=== PATIENT | female | born 1965 | race Caucasian/White ===

== ENCOUNTER 2017-02-08 19:18 | Emergency (ER) | payer MEDICAID ==
[2017-02-08 19:28] VITALS: BP 140/109; PULSE 91; RESP 18; TEMP 98; O2SAT 99
[2017-02-08 20:19] LABS: BASO % 0.6 % (0.0-2.0); EOS # 0.2 K/uL (0.0-0.7); EOS % 3.1 % (0.0-4.0); HEMATOCRIT 31.7 % (34.0-47.0); LYMPH % 36.4 % (20.0-40.0); MEAN CELL VOLUME 81.4 fl (81.0-99.0); MEAN CORPUSCULAR HEMOGLOBIN 26.8 pg (27.0-31.0); MEAN CORPUSCULAR HGB CONC 32.9 g/dL (33.0-37.0); MEAN PLATELET VOLUME 9.8 fl (7.2-11.7); MONO # 0.5 K/uL (0.0-0.8); MONO % 9.6 % (0.0-10.0); NEUT # 2.7 K/uL (1.8-7.0); NEUT % 50.3 % (50.0-75.0); NRBC % 0.1 % (0.0-0.0); RED CELL DISTRIBUTION WIDTH 15.1 % (11.5-14.5); WHITE BLOOD COUNT 5.4 K/uL (4.8-10.8)
[2017-02-08 20:35] LABS: BLOOD UREA NITROGEN 17 mg/dl (7-17); CALCIUM 8.9 mg/dL (8.4-10.2); CARBON DIOXIDE 25 mmol/L (22-30); CHLORIDE 104 mmol/L (98-107); GFR AFRICAN-AMERICAN > 60; GLUCOSE,RANDOM 102 mg/dL (65-105); POTASSIUM 4.3 MMOL/L (3.6-5.0); SODIUM 141 mmol/l (132-148)
--- NOTE | 2017-02-08 20:43 | ED PDOC ---
HPI: Chest Pain Time Seen by Provider: 02/08/17 19:35 Chief Complaint (Nursing): Chest Pain Chief Complaint (Provider): Chest Pain History Per: Patient History/Exam Limitations: no limitations Onset/Duration Of Symptoms: Mins (x45) Current Symptoms Are (Timing): Better (almost completely resolved) Severity: Moderate Associated Symptoms: denies: Dyspnea, Diaphoresis Additional Complaint(s): Bridgett Mosquera is a 51 year old female, with a past medical history inclusive of HTN and previous cardiac catheterization, who presents to the ED on 02/08/17 for the evaluation of moderate, left-sided breast/chest pain that she has experienced x45 minutes. Patient states that pain, described as nonradiating, is almost completely resolved upon ED evaluation and had not been accompanied by any shortness of breath or diaphoresis. Pain had reportedly made her nervous , prompting ED visit. Of note, pertinent familial history includes both CAD and [place]. PMD: Eddie Eid Past Medical History Reviewed: Historical Data, Nursing Documentation, Vital Signs Vital Signs: Last Vital Signs Temp 98.0 F 02/08/17 19:25 Pulse 91 H 02/08/17 19:25 Resp 18 02/08/17 19:25 BP 140/109 H 02/08/17 19:25 Pulse Ox 99 02/08/17 20:57 - Medical History PMH: Anemia, Anxiety, Gall Bladder Disease, HTN Denies: Chronic Kidney Disease - Surgical History Surgical History: Cholecystectomy - Family History Family History: States: [place], CAD - Immunization History Hx Tetanus Toxoid Vaccination: No Hx Influenza Vaccination: No Hx Pneumococcal Vaccination: No - Home Medications Home Medications: Ambulatory Orders Medication Instructions Recorded Alprazolam [Xanax] 0.25 mg PO DAILY PRN 07/15/16 Aspirin [Ecotrin] 81 mg PO DAILY 07/15/16 Enalapril Maleate [Vasotec] 5 mg PO DAILY 11/27/16 Ibuprofen [Motrin Tab] 800 mg PO Q8 PRN 11/27/16 Loratadine [Claritin] 10 mg PO DAILY 11/27/16 Naproxen [Naprosyn Tab] 375 mg PO Q8 #14 tab 11/27/16 - Allergies Allergies/Adverse Reactions: Allergies Allergy/AdvReac Type Severity Reaction Status Date / Time No Known Allergies Allergy Verified 11/27/16 19:02 Review of Systems ROS Statement: Except As Marked, All Systems Reviewed And Found Negative Constitutional: Negative for: Sweats Cardiovascular: Positive for: Chest Pain (left-sided breast/chest, nonradiating) Respiratory: Negative for: Shortness of Breath Physical Exam - Reviewed Nursing Documentation Reviewed: Yes Vital Signs Reviewed: Yes - Physical Exam Appears: Positive for: Non-toxic, No Acute Distress Head Exam: Positive for: ATRAUMATIC, NORMOCEPHALIC Skin: Positive for: Normal Color, Warm, Dry Eye Exam: Positive for: Normal appearance, PERRL Neck: Positive for: Normal, Painless ROM, Supple Cardiovascular/Chest: Positive for: Regular Rate, Rhythm, Chest Non Tender. Negative for: Murmur Respiratory: Positive for: Normal Breath Sounds. Negative for: Respiratory Distress Neurologic/Psych: Positive for: Alert, Oriented - Laboratory Results Result Diagrams: 02/08/17 20:10 02/08/17 20:10 - ECG ECG: Positive for: Interpreted By Me, Viewed By Me ECG Rhythm: Positive for: Sinus Rhythm. Negative for: ST/T Changes O2 Sat by Pulse Oximetry: 99 (RA) Pulse Ox Interpretation: Normal Medical Decision Making Medical Decision Makin:35 EKG performed in Triage shows NSR with no ST/T changes. Initial Impression: noncardiac chest pain Initial Plan: * CXR * Labs * Troponin I * Reevaluation Scribe Attestation: Documented by Melani Lares, acting as a scribe for Davon Eng MD. Provider Scribe Attestation: All medical record entries made by the Scribe were at my direction and personally dictated by me. I have reviewed the chart and agree that the record accurately reflects my personal performance of the history, physical exam, medical decision making, and the department course for this patient. I have also personally directed, reviewed, and agree with the discharge instructions and disposition. Disposition - Clinical Impression Clinical Impression: Anterior chest wall pain - Disposition Referrals: [facility] [Outside] Disposition Time: 21:00 Condition: STABLE Instructions: Noncardiac Chest Pain (ED) Print Language: PALESTINIAN
--- NOTE | 2017-02-09 06:37 | RAD ---
HISTORY: cp COMPARISON: No prior. TECHNIQUE: Chest PA and lateral FINDINGS: LUNGS: No active pulmonary disease. PLEURA: No significant pleural effusion identified. No pneumothorax apparent. CARDIOVASCULAR: Normal. OSSEOUS STRUCTURES: No significant abnormalities. VISUALIZED UPPER ABDOMEN: Normal. OTHER FINDINGS: None. IMPRESSION: No active disease.
== END 2017-02-08 21:07 | disposition home or self-care (01) ==
LOC: H.ER 19:18
DX: R07.89 Other chest pain (principal); I10 Essential (primary) hypertension; Z79.82 Long term (current) use of aspirin

== ENCOUNTER 2017-07-30 21:28 | Emergency (ER) | payer MEDICAID ==
[2017-07-30 21:36] VITALS: RESP 16
[2017-07-30 22:27] LABS: BASO % 0.8 % (0.0-2.0); EOS # 0.2 K/uL (0.0-0.7); EOS % 3.3 % (0.0-4.0); HEMATOCRIT 30.4 % (34.0-47.0); LYMPH # 1.9 K/uL (1.0-4.3); LYMPH % 40.4 % (20.0-40.0); MEAN CELL VOLUME 81.5 fl (81.0-99.0); MEAN CORPUSCULAR HEMOGLOBIN 26.5 pg (27.0-31.0); MEAN CORPUSCULAR HGB CONC 32.5 g/dL (33.0-37.0); MEAN PLATELET VOLUME 9.5 fl (7.2-11.7); MONO # 0.5 K/uL (0.0-0.8); MONO % 10.4 % (0.0-10.0); NEUT # 2.2 K/uL (1.8-7.0); NEUT % 45.1 % (50.0-75.0); NRBC % 0.1 % (0.0-0.0); RED CELL DISTRIBUTION WIDTH 14.3 % (11.5-14.5); WHITE BLOOD COUNT 4.8 K/uL (4.8-10.8)
[2017-07-30 22:32] LABS: BLOOD UREA NITROGEN 19 mg/dl (7-17); CALCIUM 8.7 mg/dL (8.4-10.2); CARBON DIOXIDE 24 mmol/L (22-30); CHLORIDE 106 mmol/L (98-107); GFR AFRICAN-AMERICAN > 60; GLUCOSE,RANDOM 113 mg/dL (65-105); POTASSIUM 4.1 MMOL/L (3.6-5.0); SODIUM 138 mmol/l (132-148)
--- NOTE | 2017-07-30 22:38 | ED PDOC ---
HPI: Chest Pain Time Seen by Provider: 07/30/17 21:43 Chief Complaint (Nursing): Chest Pain History Per: Patient History/Exam Limitations: no limitations Onset/Duration Of Symptoms: Hrs (1) Current Symptoms Are (Timing): Still Present Severity: Moderate Quality: "Pain" Associated Symptoms: denies: Nausea, Dyspnea, Diaphoresis Modifying Factors: None Exacerbating Factors: None Alleviating Factors: None Additional History Per: Patient Additional Complaint(s): 52 y/o female complaining of chest pain x1 hour and associated with tingling/numbness in bilateral feet. No nausea. vomiting, shortness of breath, diaphoresis. She reports that she has had significant anxiety recently as her mother is hospitalized here. Past Medical History Vital Signs: Last Vital Signs Temp 98.2 F 07/30/17 21:34 Pulse 80 07/30/17 21:34 Resp 16 07/30/17 21:34 BP 128/65 07/30/17 21:34 Pulse Ox 98 07/30/17 22:42 - Medical History PMH: Anemia, Anxiety, Gall Bladder Disease, HTN Denies: Chronic Kidney Disease - Surgical History Surgical History: Cholecystectomy Other surgeries: Gastric Bypass - Family History Family History: States: Unknown Family Hx, [place], CAD - Immunization History Hx Tetanus Toxoid Vaccination: No Hx Influenza Vaccination: No Hx Pneumococcal Vaccination: No - Home Medications Home Medications: Ambulatory Orders Medication Instructions Recorded Alprazolam [Xanax] 0.25 mg PO DAILY PRN 07/15/16 Aspirin [Ecotrin] 81 mg PO DAILY 07/15/16 Enalapril Maleate [Vasotec] 5 mg PO DAILY 11/27/16 Ibuprofen [Motrin Tab] 800 mg PO Q8 PRN 11/27/16 Loratadine [Claritin] 10 mg PO DAILY 11/27/16 Naproxen [Naprosyn Tab] 375 mg PO Q8 #14 tab 11/27/16 - Allergies Allergies/Adverse Reactions: Allergies Allergy/AdvReac Type Severity Reaction Status Date / Time No Known Allergies Allergy Verified 07/30/17 21:34 Review of Systems ROS Statement: Except As Marked, All Systems Reviewed And Found Negative Cardiovascular: Positive for: Chest Pain Psych: Positive for: Anxiety Physical Exam - Reviewed Nursing Documentation Reviewed: Yes Vital Signs Reviewed: Yes - Physical Exam Appears: Positive for: Well, Non-toxic, No Acute Distress Head Exam: Positive for: ATRAUMATIC, NORMAL INSPECTION, NORMOCEPHALIC Skin: Positive for: Normal Color, Warm, DRY Eye Exam: Positive for: EOMI, Normal appearance, PERRL ENT: Positive for: Normal ENT Inspection Neck: Positive for: Normal, Painless ROM Cardiovascular/Chest: Positive for: Regular Rate, Rhythm Respiratory: Positive for: CNT, Normal Breath Sounds Gastrointestinal/Abdominal: Positive for: Normal Exam, Bowel Sounds, Soft Back: Positive for: Normal Inspection Extremity: Positive for: Normal ROM Neurologic/Psych: Positive for: Alert, Oriented - Laboratory Results Result Diagrams: 07/30/17 22:21 07/30/17 22:21 - ECG ECG Rhythm: Positive for: Normal QRS, Normal ST Segment, Sinus Rhythm (74) Interpretation Of EC:34: NSR rate 74. O2 Sat by Pulse Oximetry: 98 Medical Decision Making Medical Decision Making: Impression: 52 y/o female with anterior chest discomfort in the setting of anxiety. Plan: - EKG - Labs Time: 2325 Labs reviewed and show no clinically significant abnormalities. Patient is stable upon discharge home and will follow up with [facility] in 1- 2 days. Diagnosis: Atypical chest pain, Anxiety Attestation Scribe Attestation: Documented by Dayan Decker acting as a scribe for Wale Collins MD. Scribe Attestation: All medical record entries made by the Scribe were at my direction and personally dictated by me. I have reviewed the chart and agree that the record accurately reflects my personal performance of the history, physical exam, medical decision making, and the department course for this patient. I have also personally directed, reviewed, and agree with the discharge instructions and disposition. Disposition - Clinical Impression Clinical Impression: Chest pain, atypical, Anxiety - Disposition Disposition: Routine/Home Disposition Time: 23:25 Condition: STABLE Instructions: Noncardiac Chest Pain (ED), Anxiety (ED) Forms: [employer] (Ukrainian)
[2017-07-31 00:15] VITALS: BP 109/58; PULSE 60; TEMP 97.6; O2SAT 100
--- NOTE | 2017-07-31 08:23 | CARD ---
APPROVED REPORT EKG Measurement Heart [id number] <Conclusion> Normal sinus rhythm Normal ECG
== END 2017-07-31 00:21 | disposition home or self-care (01) ==
LOC: H.ER 21:28
DX: R07.89 Other chest pain (principal); F41.9 Anxiety disorder, unspecified; I10 Essential (primary) hypertension; Z79.82 Long term (current) use of aspirin

== ENCOUNTER 2017-08-14 11:48 | Emergency (ER) | payer MEDICAID ==
[2017-08-14 12:09] VITALS: RESP 18; O2SAT 99
--- NOTE | 2017-08-14 12:42 | ED PDOC ---
HPI: Chest Pain Time Seen by Provider: 08/14/17 12:09 Chief Complaint (Nursing): Chest Pain Chief Complaint (Provider): Mid sternal chest burning History Per: Patient History/Exam Limitations: no limitations Current Symptoms Are (Timing): Still Present Additional Complaint(s): The patient is a 52yo female, presents to ED for evaluation of mid-sternal chest discomfort, described as burning. She denies any shortness of breath, nausea, vomiting. She offers no additional medical complaints. Past Medical History Reviewed: Historical Data, Nursing Documentation, Vital Signs Vital Signs: Last Vital Signs Temp 98.6 F 08/14/17 15:24 Pulse 78 08/14/17 15:24 Resp 18 08/14/17 15:24 BP 124/75 08/14/17 15:24 Pulse Ox 99 08/14/17 15:24 - Medical History PMH: Anemia, Anxiety, Gall Bladder Disease, HTN, Hypothyroidism Denies: Chronic Kidney Disease - Surgical History Surgical History: Cholecystectomy - Family History Family History: States: Unknown Family Hx, [place], CAD - Social History Current smoker - smoking cessation education provided: No Alcohol: None Drugs: Denies - Immunization History Hx Tetanus Toxoid Vaccination: No Hx Influenza Vaccination: No Hx Pneumococcal Vaccination: No - Home Medications Home Medications: Ambulatory Orders Medication Instructions Recorded Alprazolam [Xanax] 0.25 mg PO DAILY PRN 07/15/16 Aspirin [Ecotrin] 81 mg PO DAILY 07/15/16 Enalapril Maleate [Vasotec] 5 mg PO DAILY 11/27/16 Loratadine [Claritin] 10 mg PO DAILY 11/27/16 Levothyroxine [Synthroid] 50 mcg PO DAILY 08/02/17 Ciprofloxacin [Cipro] 250 mg PO BID #6 tab 08/14/17 Famotidine [Pepcid] 20 mg PO BID #20 tab 08/14/17 - Allergies Allergies/Adverse Reactions: Allergies Allergy/AdvReac Type Severity Reaction Status Date / Time No Known Allergies Allergy Verified 08/02/17 01:47 DEMOND Risk Score for UA/NSTEMI - DEMOND Risk Score Age > 64: NO 3 or more CAD Risk Factors: NO Known CAD (Stenosis greater than 50%): NO Aspirin use in past 7 days: NO Severe Angina: NO EKG ST changes greater than 0.5mm: NO Positive Cardiac Marker: NO DEMOND Score: 0 Risk %: 5% Wells Criteria for PE - Wells Criteria for Pulmonary Embolism Clinical Signs and Symptoms of DVT: No P.E is #1 Diagnosis, or Equally Likely: No Heart Rate >100: No Immobilization at least 3 days;Surgery previous 4 weeks: No Previous, objectively diagnosed PE or DVT: No Hemoptysis: No Malignancy w/treatment within 6 months, or palliative: No Total Score: 0 Review of Systems ROS Statement: Except As Marked, All Systems Reviewed And Found Negative Constitutional: Negative for: Fever, Chills Cardiovascular: Positive for: Other (mid-sternal chest burning) Respiratory: Negative for: Cough, Shortness of Breath Physical Exam - Reviewed Nursing Documentation Reviewed: Yes Vital Signs Reviewed: Yes - Physical Exam Appears: Positive for: Non-toxic, No Acute Distress Head Exam: Positive for: ATRAUMATIC, NORMAL INSPECTION, NORMOCEPHALIC Skin: Positive for: Warm, Dry Cardiovascular/Chest: Positive for: Regular Rate, Rhythm, Chest Non Tender. Negative for: Murmur Respiratory: Positive for: Normal Breath Sounds. Negative for: Respiratory Distress Neurologic/Psych: Positive for: Alert, Oriented. Negative for: Motor/Sensory Deficits - Laboratory Results Result Diagrams: 08/14/17 12:40 08/14/17 12:40 - ECG Interpretation Of ECG: NSR @ 79, no ST-T changes. O2 Sat by Pulse Oximetry: 99 (RA) Pulse Ox Interpretation: Normal - Progress Re-evaluation Time: 14:52 Condition: Improved Medical Decision Making Medical Decision Making: Time: 1215 Impression: GERD Plan: -- Labs -- EKG Reassess Time: 1246 Chest x-ray IMPRESSION: No active disease. No significant interval change compared to the prior examination(s). Scribe Attestation: Documented by Genie Diaz acting as a scribe for Haleigh Clark MD. Provider Attestation: All medical record entries made by the Scribe were at my direction and personally dictated by me. I have reviewed the chart and agree that the record accurately reflects my personal performance of the history, physical exam, medical decision making, and the department course for this patient. I have also personally directed, reviewed, and agree with the discharge instructions and disposition. Disposition - Clinical Impression Clinical Impression: Atypical chest pain, UTI (urinary tract infection) - Disposition Referrals: Eddie Eid MD [Family Provider] - Disposition: Routine/Home Disposition Time: 17:39 Condition: STABLE Prescriptions: Ciprofloxacin [Cipro] 250 mg PO BID #6 tab Famotidine [Pepcid] 20 mg PO BID #20 tab Instructions: Chest Pain (ED), Urinary Tract Infection in Women (ED) Forms: [employer] (Romanian) Print Language: MAURITIAN
--- NOTE | 2017-08-14 12:48 | RAD ---
HISTORY: Chest pain, burning COMPARISON: 02/08/2017 TECHNIQUE: Chest PA and lateral FINDINGS: LUNGS: No active pulmonary disease. PLEURA: No significant pleural effusion identified. No pneumothorax apparent. CARDIOVASCULAR: Two No radiographic findings to suggest acute or significant cardiovascular disease. OSSEOUS STRUCTURES: No significant abnormalities. VISUALIZED UPPER ABDOMEN: Normal. OTHER FINDINGS: None. IMPRESSION: No active disease. No significant interval change compared to the prior examination(s). Please note: No preliminary report/ innterpretation of this examination provided by emergency department personnel.
[2017-08-14 12:52] LABS: BASO % 0.6 % (0.0-2.0); EOS # 0.1 K/uL (0.0-0.7); EOS % 1.4 % (0.0-4.0); HEMATOCRIT 33.9 % (34.0-47.0); LYMPH # 1.7 K/uL (1.0-4.3); LYMPH % 24.5 % (20.0-40.0); MEAN CELL VOLUME 79.8 fl (81.0-99.0); MEAN CORPUSCULAR HEMOGLOBIN 26.7 pg (27.0-31.0); MEAN CORPUSCULAR HGB CONC 33.5 g/dL (33.0-37.0); MEAN PLATELET VOLUME 9.6 fl (7.2-11.7); MONO # 0.3 K/uL (0.0-0.8); MONO % 4.9 % (0.0-10.0); NEUT # 4.7 K/uL (1.8-7.0); NEUT % 68.6 % (50.0-75.0); NRBC % 0.1 % (0.0-0.0); RED CELL DISTRIBUTION WIDTH 14.7 % (11.5-14.5); WHITE BLOOD COUNT 6.8 K/uL (4.8-10.8)
[2017-08-14 12:59] LABS: ALB/GLOB RATIO 1.2 (1.0-2.1); ALKALINE PHOSPHATASE 97 U/L (38-126); ALT/SGPT 37 U/L (9-52); AST/SGOT 24 U/L (14-36); BILIRUBIN,TOTAL 0.8 mg/dl (0.2-1.3); BLOOD UREA NITROGEN 16 mg/dl (7-17); CALCIUM 9.4 mg/dL (8.4-10.2); CARBON DIOXIDE 25 mmol/L (22-30); CHLORIDE 104 mmol/L (98-107); GFR AFRICAN-AMERICAN > 60; GLUCOSE,RANDOM 100 mg/dL (65-105); POTASSIUM 4.4 MMOL/L (3.6-5.0); SODIUM 142 mmol/l (132-148); TOTAL PROTEIN 7.9 G/DL (6.3-8.2)
[2017-08-14] MEDS ORDERED: Alum-Mag Hydrox-Simethicone Susp (30 mL) PO STA (14:15)
[2017-08-14] MEDS ORDERED: Atrop/Hyos/Scop/PhenoB Elixir PO STA (14:16)
[2017-08-14] MEDS ORDERED: Alum-Mag Hydrox-Simethicone Susp (30 mL) ONE (14:38)
[2017-08-14 15:25] VITALS: BP 124/75; PULSE 78; TEMP 98.6
[2017-08-14 16:49] LABS: RBC URINE 1 /hpf (0-3); URINE BACTERIA FEW (<OCC); URINE BILIRUBIN NEGATIVE (NEGATIVE); URINE BLOOD SMALL (NEGATIVE); URINE GLUCOSE (UA) NEG (Normal); URINE KETONE NEGATIVE (NEGATIVE); URINE LEUKOCYTE ESTERASE SMALL Leu/uL (Negative); URINE PROTEIN NEGATIVE (NEGATIVE); URINE UROBILINOGEN 0.2-1.0 mg/dL (0.2-1.0); WBC URINE 5 /hpf (0-5)
[2017-08-14 16:50] LABS: URINE COLOR YELLOW (YELLOW)
--- NOTE | 2017-08-16 12:18 | CARD ---
APPROVED REPORT EKG Measurement Heart [id number] <Conclusion> Normal sinus rhythm Normal ECG
== END 2017-08-14 17:16 | disposition home or self-care (01) ==
LOC: H.ER 11:48
DX: R07.89 Other chest pain (principal); N39.0 Urinary tract infection, site not specified

== ENCOUNTER 2017-09-07 00:16 | Emergency (ER) | payer MEDICAID ==
[2017-09-07 00:52] VITALS: RESP 18
[2017-09-07] MEDS ORDERED: Sodium Chloride 0.9% 1,000 ML IV STA (01:06)
--- NOTE | 2017-09-07 01:23 | ED PDOC ---
HPI: Back Time Seen by Provider: 09/07/17 00:25 Chief Complaint (Nursing): Back Pain Chief Complaint (Provider): Back pain History Per: Patient History/Exam Limitations: no limitations Onset/Duration Of Symptoms: Hrs Current Symptoms Are (Timing): Still Present Additional History Per: Patient Additional Complaint(s): 52yo female, currently being treated for an UTI, presents to the ED for evaluation of bilateral lower back pain as well as right upper back pain, associated with chills. Patient states she woke up yesterday morning with chills and nausea; she denies any fever or vomiting. She denies any dysuria, hematuria and offers no other medical complaints. Past Medical History Reviewed: Historical Data, Nursing Documentation, Vital Signs Vital Signs: Last Vital Signs Temp 97.5 F L 09/07/17 00:50 Pulse 74 09/07/17 00:50 Resp 18 09/07/17 00:50 BP 170/83 H 09/07/17 00:50 Pulse Ox 99 09/07/17 00:50 - Medical History PMH: Anemia, Anxiety, Gall Bladder Disease, HTN, Hypothyroidism Denies: Chronic Kidney Disease - Surgical History Surgical History: Cholecystectomy - Family History Family History: States: [place], CAD - Immunization History Hx Tetanus Toxoid Vaccination: No Hx Influenza Vaccination: No Hx Pneumococcal Vaccination: No - Home Medications Home Medications: Ambulatory Orders Medication Instructions Recorded Alprazolam [Xanax] 0.25 mg PO DAILY PRN 07/15/16 Aspirin [Ecotrin] 81 mg PO DAILY 07/15/16 Enalapril Maleate [Vasotec] 5 mg PO DAILY 11/27/16 Loratadine [Claritin] 10 mg PO DAILY 11/27/16 Levothyroxine [Synthroid] 50 mcg PO DAILY 08/02/17 Ciprofloxacin [Cipro] 250 mg PO BID #6 tab 08/14/17 Famotidine [Pepcid] 20 mg PO BID #20 tab 08/14/17 Cyclobenzaprine [Cyclobenzaprine 10 mg PO BID #15 tab 09/07/17 HCl] Ibuprofen [Motrin Tab] 600 mg PO Q6 #30 tab 09/07/17 - Allergies Allergies/Adverse Reactions: Allergies Allergy/AdvReac Type Severity Reaction Status Date / Time No Known Allergies Allergy Verified 09/07/17 00:48 Review of Systems ROS Statement: Except As Marked, All Systems Reviewed And Found Negative Constitutional: Positive for: Chills. Negative for: Fever Gastrointestinal: Positive for: Nausea. Negative for: Vomiting Genitourinary Female: Negative for: Dysuria, Hematuria Musculoskeletal: Positive for: Back Pain (bilateral lower back pain; right upper back pain) Physical Exam - Reviewed Nursing Documentation Reviewed: Yes - Physical Exam Appears: Positive for: Non-toxic, No Acute Distress Head Exam: Positive for: ATRAUMATIC, NORMAL INSPECTION, NORMOCEPHALIC Cardiovascular/Chest: Positive for: Regular Rate, Rhythm Respiratory: Positive for: Normal Breath Sounds. Negative for: Respiratory Distress Back: Positive for: Normal Inspection, R CVA Tenderness (mild). Negative for: Vertebral Tenderness Neurologic/Psych: Positive for: Alert, Oriented - Laboratory Results Result Diagrams: 09/07/17 01:20 09/07/17 01:20 - ECG O2 Sat by Pulse Oximetry: 99 (RA) Pulse Ox Interpretation: Normal Medical Decision Making Medical Decision Making: Time: 104 Impression: Possible pyelonephritis Plan: -- CT AP w/ IV Contrast -- Labs -- Toradol 15 mg IVP -- IV Fluids -- Urinalysis -- Urine Culture Reassess Time: 0545 CT AP FINDINGS: Lower thorax: No acute findings. ABDOMEN: Liver: Unremarkable. No mass. Gallbladder and bile ducts: Cholecystectomy. No ductal dilation. Pancreas: Unremarkable. No mass. No ductal dilation. Spleen: Unremarkable. No splenomegaly. Adrenals: Unremarkable. No mass. Kidneys and ureters: Unremarkable. No solid mass. No hydronephrosis. Stomach and bowel: Gastric surgery. Appendix: No findings to suggest acute appendicitis. PELVIS: Bladder: Unremarkable. No mass. Reproductive: 2 CM left ovarian hypodensity, probable cyst. ABDOMEN and PELVIS: Intraperitoneal space: Unremarkable. No free air. No significant fluid collection. Bones/joints: Diffuse mild spinal degenerative changes. No acute fracture. No dislocation. Soft tissues: Unremarkable. Vasculature: Unremarkable. No abdominal aortic aneurysm. Lymph nodes: Unremarkable. No enlarged lymph nodes. IMPRESSION: 1. No hydronephrosis, renal, or definite ureteral calculus. Symmetric enhancement of kidneys. No perinephric inflammation or fluid collection. 2. Remainder of findings as above. 545 pt's symptoms resolved. will d/c home.. return preacutions given. Scribe Attestation: Documented by Genie Diaz acting as a scribe for Davon Eng MD. Provider Attestation: All medical record entries made by the Scribe were at my direction and personally dictated by me. I have reviewed the chart and agree that the record accurately reflects my personal performance of the history, physical exam, medical decision making, and the department course for this patient. I have also personally directed, reviewed, and agree with the discharge instructions and disposition. Disposition - Clinical Impression Clinical Impression: Back strain - Disposition Referrals: Eddie Eid MD [Staff Provider] - Disposition: Routine/Home Disposition Time: 05:45 Condition: STABLE Prescriptions: Cyclobenzaprine [Cyclobenzaprine HCl] 10 mg PO BID #15 tab Ibuprofen [Motrin Tab] 600 mg PO Q6 #30 tab Instructions: Muscle Strain (ED), Musculoskeletal Pain (ED) Forms: [employer] (Latvian) Print Language: GREEK
[2017-09-07 01:41] LABS: BASO % 0.8 % (0.0-2.0); EOS # 0.1 K/uL (0.0-0.7); EOS % 1.9 % (0.0-4.0); HEMATOCRIT 30.6 % (34.0-47.0); LYMPH # 2.2 K/uL (1.0-4.3); LYMPH % 34.7 % (20.0-40.0); MEAN CELL VOLUME 81.6 fl (81.0-99.0); MEAN CORPUSCULAR HEMOGLOBIN 26.9 pg (27.0-31.0); MEAN PLATELET VOLUME 9.5 fl (7.2-11.7); MONO # 0.6 K/uL (0.0-0.8); MONO % 9.2 % (0.0-10.0); NEUT # 3.3 K/uL (1.8-7.0); NEUT % 53.4 % (50.0-75.0); RED CELL DISTRIBUTION WIDTH 15.2 % (11.5-14.5); WHITE BLOOD COUNT 6.3 K/uL (4.8-10.8)
[2017-09-07 01:43] LABS: RBC URINE < 1 /hpf (0-3); URINE BACTERIA RARE (<OCC); URINE BILIRUBIN NEGATIVE (NEGATIVE); URINE BLOOD NEGATIVE (NEGATIVE); URINE COLOR YELLOW (YELLOW); URINE GLUCOSE (UA) NEG (Normal); URINE KETONE NEGATIVE (NEGATIVE); URINE LEUKOCYTE ESTERASE NEG Leu/uL (Negative); URINE PROTEIN 100 mg/dL (NEGATIVE); WBC URINE < 1 /hpf (0-5)
[2017-09-07 01:53] LABS: ALB/GLOB RATIO 1.2 (1.0-2.1); ALKALINE PHOSPHATASE 79 U/L (38-126); ALT/SGPT 31 U/L (9-52); AST/SGOT 25 U/L (14-36); BILIRUBIN,TOTAL 0.4 mg/dl (0.2-1.3); BLOOD UREA NITROGEN 14 mg/dl (7-17); CALCIUM 8.7 mg/dL (8.4-10.2); CARBON DIOXIDE 28 mmol/L (22-30); CHLORIDE 105 mmol/L (98-107); GFR AFRICAN-AMERICAN > 60; GLUCOSE,RANDOM 105 mg/dL (65-105); POTASSIUM 3.8 MMOL/L (3.6-5.0); SODIUM 141 mmol/l (132-148); TOTAL PROTEIN 6.9 G/DL (6.3-8.2)
[2017-09-07] MEDS ORDERED: Iohexol 300 100 ML IJ ONE ×2 (04:32→04:50)
[2017-09-07] MEDS ORDERED: Sodium Chloride 0.9% 50 ML IV ONE ×2 (04:33→04:53)
--- NOTE | 2017-09-07 05:45 | CT ---
EXAM: CT Abdomen and Pelvis With Intravenous Contrast CLINICAL HISTORY: 52 years old, female; Pain; Abdominal pain; Generalized; Additional info: Recently diagnosed uti, r flank pain TECHNIQUE: Axial computed tomography images of the abdomen and pelvis with intravenous contrast. All CT scans at this facility use one or more dose reduction techniques, viz.: automated exposure control; ma/kV adjustment per patient size (including targeted exams where dose is matched to indication; i.e. head); or iterative reconstruction technique. Coronal and sagittal reformatted images were created and reviewed. CONTRAST: 95 mL of [id number] administered intravenously. COMPARISON: No relevant prior studies available. FINDINGS: Lower thorax: No acute findings. ABDOMEN: Liver: Unremarkable. No mass. Gallbladder and bile ducts: Cholecystectomy. No ductal dilation. Pancreas: Unremarkable. No mass. No ductal dilation. Spleen: Unremarkable. No splenomegaly. Adrenals: Unremarkable. No mass. Kidneys and ureters: Unremarkable. No solid mass. No hydronephrosis. Stomach and bowel: Gastric surgery. Appendix: No findings to suggest acute appendicitis. PELVIS: Bladder: Unremarkable. No mass. Reproductive: 2 CM left ovarian hypodensity, probable cyst. ABDOMEN and PELVIS: Intraperitoneal space: Unremarkable. No free air. No significant fluid collection. Bones/joints: Diffuse mild spinal degenerative changes. No acute fracture. No dislocation. Soft tissues: Unremarkable. Vasculature: Unremarkable. No abdominal aortic aneurysm. Lymph nodes: Unremarkable. No enlarged lymph nodes. IMPRESSION: 1. No hydronephrosis, renal, or definite ureteral calculus. Symmetric enhancement of kidneys. No perinephric inflammation or fluid collection. 2. Remainder of findings as above.
[2017-09-07 06:03] VITALS: BP 111/83; PULSE 69; TEMP 98.5
[2017-09-08 01:07] VITALS: O2SAT 99
== END 2017-09-07 06:03 | disposition home or self-care (01) ==
LOC: H.ER 00:16
DX: M54.9 Dorsalgia, unspecified (principal); N39.0 Urinary tract infection, site not specified; E03.9 Hypothyroidism, unspecified; F41.9 Anxiety disorder, unspecified; I10 Essential (primary) hypertension; Z79.82 Long term (current) use of aspirin; Z82.49 Family history of ischemic heart disease and other diseases of the circulatory system
CPT/HCPCS: 74177; 80053; 81003; 81025; 85025; 87086; 96361; 96374; 99283; J1885; J7040; Q9967

== ENCOUNTER 2017-09-28 18:38 | Emergency (ER) | payer MEDICAID ==
[2017-09-28 18:47] VITALS: BP 136/67; PULSE 82; RESP 18; TEMP 97.8; O2SAT 99
--- NOTE | 2017-09-28 19:21 | ED PDOC ---
HPI: Chest Pain Time Seen by Provider: 09/28/17 18:54 Chief Complaint (Nursing): Chest Pain Chief Complaint (Provider): chest pain History Per: Patient History/Exam Limitations: no limitations Onset/Duration Of Symptoms: Hrs (since 5p) Current Symptoms Are (Timing): Still Present Severity: Mild Quality: Pressure Associated Symptoms: denies: Nausea, Dyspnea, Diaphoresis, Syncope Additional Complaint(s): Started while doing dishes. Midsternum radiating to LEFT shoulder. Constant. Took her BP at home which was 161/91 Similar to previous episodes when she was told that it was muscular, but reports that she feels more "tight" then that time. PMD: Dr Eid Past Medical History Reviewed: Historical Data, Nursing Documentation, Vital Signs Vital Signs: Last Vital Signs Temp 97.8 F 09/28/17 18:44 Pulse 82 09/28/17 18:44 Resp 18 09/28/17 18:44 BP 136/67 09/28/17 18:44 Pulse Ox 99 09/28/17 19:23 - Medical History PMH: Anemia, Anxiety, Gall Bladder Disease, HTN, Hypothyroidism Denies: Chronic Kidney Disease - Surgical History Surgical History: Cholecystectomy Other surgeries: Gastric bypass, abdominoplasty - Family History Family History: States: Unknown Family Hx, [place], CAD - Social History Current smoker - smoking cessation education provided: No Drugs: Denies - Immunization History Hx Tetanus Toxoid Vaccination: No Hx Influenza Vaccination: No Hx Pneumococcal Vaccination: No - Home Medications Home Medications: Ambulatory Orders Medication Instructions Recorded Alprazolam [Xanax] 0.25 mg PO DAILY PRN 07/15/16 Aspirin [Ecotrin] 81 mg PO DAILY 07/15/16 Enalapril Maleate [Vasotec] 5 mg PO DAILY 11/27/16 Loratadine [Claritin] 10 mg PO DAILY 11/27/16 Levothyroxine [Synthroid] 50 mcg PO DAILY 08/02/17 Ciprofloxacin [Cipro] 250 mg PO BID #6 tab 08/14/17 Famotidine [Pepcid] 20 mg PO BID #20 tab 08/14/17 Cyclobenzaprine [Cyclobenzaprine 10 mg PO BID #15 tab 09/07/17 HCl] Ibuprofen [Motrin Tab] 600 mg PO Q6 #30 tab 09/07/17 Naproxen [Naprosyn] 1 tab PO BID PRN #30 tab 09/28/17 - Allergies Allergies/Adverse Reactions: Allergies Allergy/AdvReac Type Severity Reaction Status Date / Time No Known Allergies Allergy Verified 09/07/17 00:48 Review of Systems ROS Statement: Except As Marked, All Systems Reviewed And Found Negative (and as per HPI) Cardiovascular: Positive for: Chest Pain. Negative for: Light Headedness Respiratory: Negative for: Shortness of Breath Physical Exam - Reviewed Nursing Documentation Reviewed: Yes Vital Signs Reviewed: Yes - Physical Exam Appears: Positive for: Non-toxic, No Acute Distress Head Exam: Positive for: ATRAUMATIC, NORMOCEPHALIC Skin: Positive for: Warm Eye Exam: Positive for: EOMI, PERRL ENT: Negative for: Pharyngeal Erythema, Tonsillar Exudate Neck: Positive for: Painless ROM, Supple Cardiovascular/Chest: Positive for: Regular Rate, Rhythm, Chest Non Tender. Negative for: Murmur Respiratory: Positive for: Normal Breath Sounds. Negative for: Wheezing, Respiratory Distress Gastrointestinal/Abdominal: Positive for: Soft. Negative for: Tenderness Back: Positive for: Normal Inspection. Negative for: Decreased ROM Extremity: Positive for: Normal ROM. Negative for: Deformity Lymphatic: Negative for: Adenopathy Neurologic/Psych: Positive for: Alert. Negative for: Motor/Sensory Deficits - Laboratory Results Result Diagrams: 09/28/17 19:26 09/28/17 19:26 Interpretation Of Abn Labs: Anemia, stable c/w previous. No emergently significant lab abnormalities - ECG ECG: Positive for: Interpreted By Ok ECG Rhythm: Positive for: Normal QRS, Normal ST Segment, Sinus Rhythm O2 Sat by Pulse Oximetry: 99 Pulse Ox Interpretation: Normal - Radiology X-Ray: Interpreted by Ok X-Ray Interpretation: No Acute Disease Disposition - Clinical Impression Clinical Impression: Chest wall pain Counseled Patient/Family Regarding: Studies Performed, Diagnosis, Need For Followup, Rx Given - Disposition Referrals: Eddie Eid MD [Staff Provider] - 09/29/17 (VISITA MELÉNDEZ DOCTOR EN 1-2 [employer] A [facility]) Disposition: Routine/Home Disposition Time: 21:00 Condition: GOOD Prescriptions: Naproxen [Naprosyn] 1 tab PO BID PRN #30 tab PRN Reason: Pain Instructions: Noncardiac Chest Pain (ED) Print Language: BURKINAN
[2017-09-28 19:30] LABS: BASO % 0.9 % (0.0-2.0); EOS # 0.1 K/uL (0.0-0.7); EOS % 1.7 % (0.0-4.0); HEMATOCRIT 30.9 % (34.0-47.0); LYMPH # 2.4 K/uL (1.0-4.3); MEAN CELL VOLUME 78.4 fl (81.0-99.0); MEAN CORPUSCULAR HEMOGLOBIN 26.6 pg (27.0-31.0); MEAN CORPUSCULAR HGB CONC 33.9 g/dL (33.0-37.0); MEAN PLATELET VOLUME 9.3 fl (7.2-11.7); MONO # 0.4 K/uL (0.0-0.8); MONO % 7.8 % (0.0-10.0); NEUT # 2.8 K/uL (1.8-7.0); NEUT % 48.6 % (50.0-75.0); NRBC % 0.1 % (0.0-0.0); RED CELL DISTRIBUTION WIDTH 14.5 % (11.5-14.5); WHITE BLOOD COUNT 5.7 K/uL (4.8-10.8)
[2017-09-28 19:50] LABS: ALB/GLOB RATIO 1.2 (1.0-2.1); ALKALINE PHOSPHATASE 97 U/L (38-126); ALT/SGPT 39 U/L (9-52); AST/SGOT 24 U/L (14-36); BILIRUBIN,TOTAL 0.2 mg/dl (0.2-1.3); BLOOD UREA NITROGEN 12 mg/dl (7-17); CALCIUM 8.6 mg/dL (8.4-10.2); CARBON DIOXIDE 27 mmol/L (22-30); CHLORIDE 107 mmol/L (98-107); GFR AFRICAN-AMERICAN > 60; GLUCOSE,RANDOM 98 mg/dL (65-105); MAGNESIUM 1.8 MG/DL (1.6-2.3); PHOSPHOROUS 2.9 mg/dl (2.5-4.5); POTASSIUM 3.9 MMOL/L (3.6-5.0); SODIUM 140 mmol/l (132-148); TOTAL PROTEIN 7.2 G/DL (6.3-8.2)
[2017-09-28 20:01] LABS: PARTIAL THROMBOPLASTIN TIME 34.9 Seconds (25.6-37.1)
[2017-09-28 20:19] LABS: THYROID STIMULATING HORMONE 3.41 mIU/ML (0.46-4.68)
--- NOTE | 2017-09-29 09:36 | RAD ---
HISTORY: chest pain COMPARISON: Chest radiographs 08/14/2017. TECHNIQUE: Chest PA and lateral FINDINGS: LUNGS: No active pulmonary disease. PLEURA: No significant pleural effusion identified. No pneumothorax apparent. CARDIOVASCULAR: Normal. OSSEOUS STRUCTURES: No significant abnormalities. VISUALIZED UPPER ABDOMEN: Postop changes are again seen the medial left upper quadrant. OTHER FINDINGS: None. IMPRESSION: No interval acute cardiopulmonary disease appreciated.
--- NOTE | 2017-09-29 11:25 | CARD ---
APPROVED REPORT EKG Measurement Heart [id number] <Conclusion> Normal sinus rhythm Normal ECG
== END 2017-09-28 21:52 | disposition home or self-care (01) ==
LOC: H.ER 18:38
DX: R07.89 Other chest pain (principal); E03.9 Hypothyroidism, unspecified; F41.9 Anxiety disorder, unspecified; I10 Essential (primary) hypertension; Z79.82 Long term (current) use of aspirin; D64.9 Anemia, unspecified
CPT/HCPCS: 71020; 80053; 81025; 83735; 83880; 84100; 84443; 84484; 85025; 85610; 85730; 93005; 96374; 99283; J1885

== ENCOUNTER 2017-10-22 20:04 | Emergency (ER) | payer MEDICAID ==
[2017-10-22 20:15] VITALS: TEMP 97.7; O2SAT 100
[2017-10-22] MEDS ORDERED: Sodium Chloride 0.9% 1,000 ML IV STA (20:31)
--- NOTE | 2017-10-22 20:35 | ED PDOC ---
HPI: Chest Pain Time Seen by Provider: 10/22/17 20:22 Chief Complaint (Nursing): Chest Pain Chief Complaint (Provider): Central chest pain, pressure x 30 minutes History Per: Patient History/Exam Limitations: no limitations Onset/Duration Of Symptoms: Mins (30 minutes ) Severity: Moderate Pain Scale Rating Of: 6 Front/Back of Body, Lg (Color): 1 - Pain Quality: Tightness, Pressure Associated Symptoms: Nausea. denies: Dyspnea, Diaphoresis Modifying Factors: None Exacerbating Factors: None Alleviating Factors: None Additional Complaint(s): Pt states this pain is different than the pain she has had in the past. Pt states it radiates to the neck bilateral. Pt also reports palpitations which she has not had in the past with her chest/shoulder pain. Past Medical History Reviewed: Historical Data, Nursing Documentation, Vital Signs Vital Signs: Last Vital Signs Temp 97.7 F 10/22/17 20:09 Pulse 78 10/22/17 21:33 Resp 20 10/22/17 21:33 BP 143/80 10/22/17 21:33 Pulse Ox 100 10/22/17 20:35 - Medical History PMH: Anemia, Anxiety, Gall Bladder Disease, HTN, Hypothyroidism Denies: Chronic Kidney Disease - Surgical History Surgical History: Cholecystectomy - Family History Family History: States: Unknown Family Hx, [place], CAD - Living Arrangements Living Arrangements: Alone - Immunization History Hx Tetanus Toxoid Vaccination: No Hx Influenza Vaccination: No Hx Pneumococcal Vaccination: No - Home Medications Home Medications: Ambulatory Orders Medication Instructions Recorded Alprazolam [Xanax] 0.25 mg PO PRN PRN 10/22/17 Enalapril Maleate [Vasotec] 5 mg PO DAILY 10/22/17 Levothyroxine [Synthroid] 75 mcg PO DAILY 10/22/17 - Allergies Allergies/Adverse Reactions: Allergies Allergy/AdvReac Type Severity Reaction Status Date / Time No Known Allergies Allergy Verified 10/08/17 18:04 - Laboratory Results Result Diagrams: 10/22/17 22:08 10/22/17 22:08 - ECG O2 Sat by Pulse Oximetry: 100 Medical Decision Making Medical Decision Making: Discussed with Dr. Collins and second troponin (-) Disposition - Clinical Impression Clinical Impression: Chest pain, atypical - Patient ED Disposition Is Patient to be Admitted: No Counseled Patient/Family Regarding: Diagnosis, Need For Followup - Disposition Disposition: Routine/Home Disposition Time: 01:57 Condition: GOOD Additional Instructions: Please follow-up with PMD. Instructions: Chest Pain (ED) Forms: [employer] ([place]orese) Print Language: ECUADOREAN
[2017-10-22 21:34] VITALS: PULSE 78; RESP 20
[2017-10-22 22:17] LABS: BASO % 0.5 % (0.0-2.0); EOS # 0.1 K/uL (0.0-0.7); EOS % 2.8 % (0.0-4.0); HEMATOCRIT 32.3 % (34.0-47.0); LYMPH # 2.3 K/uL (1.0-4.3); LYMPH % 41.6 % (20.0-40.0); MEAN CORPUSCULAR HGB CONC 32.1 g/dL (33.0-37.0); MONO # 0.4 K/uL (0.0-0.8); MONO % 7.9 % (0.0-10.0); NEUT # 2.6 K/uL (1.8-7.0); NEUT % 47.2 % (50.0-75.0); NRBC % 0.1 % (0.0-0.0); RED CELL DISTRIBUTION WIDTH 15.1 % (11.5-14.5); WHITE BLOOD COUNT 5.4 K/uL (4.8-10.8)
[2017-10-22 22:24] LABS: ALB/GLOB RATIO 1.1 (1.0-2.1); ALKALINE PHOSPHATASE 90 U/L (38-126); ALT/SGPT 36 U/L (9-52); AST/SGOT 28 U/L (14-36); BILIRUBIN,TOTAL 0.4 mg/dl (0.2-1.3); BLOOD UREA NITROGEN 14 mg/dl (7-17); CARBON DIOXIDE 26 mmol/L (22-30); CHLORIDE 108 mmol/L (98-107); GFR AFRICAN-AMERICAN > 60; GLUCOSE,RANDOM 114 mg/dL (65-105); SODIUM 141 mmol/l (132-148); TOTAL PROTEIN 7.3 G/DL (6.3-8.2)
[2017-10-22 23:36] LABS: THYROID STIMULATING HORMONE 3.78 mIU/ML (0.46-4.68)
[2017-10-23 02:19] VITALS: BP 94/48
--- NOTE | 2017-10-23 09:05 | RAD ---
HISTORY: chest pain, palpitations COMPARISON: 09/28/2017 TECHNIQUE: Chest PA and lateral FINDINGS: LUNGS: No active pulmonary disease. PLEURA: No significant pleural effusion identified. No pneumothorax apparent. CARDIOVASCULAR: Normal. OSSEOUS STRUCTURES: No significant abnormalities. VISUALIZED UPPER ABDOMEN: Normal. OTHER FINDINGS: None. IMPRESSION: No active disease.
--- NOTE | 2017-10-23 10:33 | CARD ---
APPROVED REPORT EKG Measurement Heart [id number] [place] [id number] <Conclusion> Sinus rhythm with frequent premature ventricular complexes Otherwise normal ECG
== END 2017-10-23 02:19 | disposition home or self-care (01) ==
LOC: H.ER 20:04
DX: R07.89 Other chest pain (principal); F41.9 Anxiety disorder, unspecified; I10 Essential (primary) hypertension; E03.9 Hypothyroidism, unspecified; I49.3 Ventricular premature depolarization
CPT/HCPCS: 71020; 80053; 84443; 84484; 85025; 93005; 96374; 99282; J2405; J7040

== ENCOUNTER 2018-02-14 22:37 | Emergency (ER) | payer MEDICAID ==
[2018-02-14 22:37] VITALS: BMI 31.7
[2018-02-14 22:50] VITALS: O2SAT 98
[2018-02-14 23:30] LABS: BASO % 0.6 % (0.0-2.0); EOS # 0.2 K/uL (0.0-0.7); EOS % 3.1 % (0.0-4.0); HEMOGLOBIN 10.8 g/dL (12.0-16.0); LYMPH # 3.1 K/uL (1.0-4.3); LYMPH % 48.8 % (20.0-40.0); MEAN CELL VOLUME 79.5 fl (81.0-99.0); MEAN CORPUSCULAR HEMOGLOBIN 25.6 pg (27.0-31.0); MEAN CORPUSCULAR HGB CONC 32.2 g/dL (33.0-37.0); MEAN PLATELET VOLUME 9.6 fl (7.2-11.7); MONO # 0.5 K/uL (0.0-0.8); MONO % 7.5 % (0.0-10.0); NEUT # 2.5 K/uL (1.8-7.0); NRBC % 0.1 % (0.0-0.0); RBC 4.21 Mil/uL (3.80-5.20); RED CELL DISTRIBUTION WIDTH 14.9 % (11.5-14.5); WHITE BLOOD COUNT 6.3 K/uL (4.8-10.8)
[2018-02-14 23:44] LABS: ALB/GLOB RATIO 1.1 (1.0-2.1); ALBUMIN 3.9 g/dL (3.5-5.0); ALT/SGPT 40 U/L (9-52); AST/SGOT 29 U/L (14-36); BLOOD UREA NITROGEN 16 mg/dl (7-17); CALCIUM 9.1 mg/dL (8.4-10.2); GFR AFRICAN-AMERICAN > 60; GFR NON-AFRICAN AMERICAN > 60
[2018-02-14 23:57] LABS: BARBITURATES, UR NEGATIVE (NEGATIVE); BENZODIAZEPINES, UR POSITIVE (NEGATIVE); OPIATES, UR NEGATIVE (NEGATIVE); PHENCYCLIDINE, UR NEGATIVE (NEGATIVE)
--- NOTE | 2018-02-15 00:57 | ED PDOC ---
HPI: Chest Pain Time Seen by Provider: 02/14/18 22:51 Chief Complaint (Nursing): Chest Pain Chief Complaint (Provider): Chest Pain History Per: Patient History/Exam Limitations: no limitations Onset/Duration Of Symptoms: Hrs (x1) Current Symptoms Are (Timing): Still Present Additional Complaint(s): Bridgett Mosquera is a 52 year old female with a past medical history of anxiety, hypertension, and hypothyroidism, who is presenting to the ER with complaints of chest pain, onset 1 hour prior to arrival while patient was sleeping. Patient states that the pain was similar to a previous episode, after which she had cardiac evaluation and a stress test completed. She states that she was told that a small part of her heart was weak. Dr. Herrera started her on Metoprolol. She denies any leg swelling, and shortness of breath but reports malaise and fatigue. PMD: Eddie Eid R - Risk Factors TAD Risk Factors: Pos: Hypertension Past Medical History Reviewed: Historical Data, Nursing Documentation, Vital Signs Vital Signs: Last Vital Signs Temp 97.6 F 02/14/18 22:44 Pulse 70 02/15/18 04:06 Resp 16 02/14/18 22:44 BP 125/77 02/14/18 22:44 Pulse Ox 98 02/15/18 04:06 - Medical History PMH: Anemia, Anxiety, Gall Bladder Disease, HTN, Hypothyroidism Denies: Chronic Kidney Disease - Surgical History Surgical History: Cholecystectomy Other surgeries: abdominoplasty - Family History Family History: States: [place], CAD - Social History Current smoker - smoking cessation education provided: No - Immunization History Hx Tetanus Toxoid Vaccination: No Hx Influenza Vaccination: No Hx Pneumococcal Vaccination: No - Home Medications Home Medications: Ambulatory Orders Medication Instructions Recorded Alprazolam [Xanax] 0.25 mg PO PRN PRN 10/22/17 Enalapril Maleate [Vasotec] 5 mg PO DAILY 10/22/17 Levothyroxine [Synthroid] 75 mcg PO DAILY 10/22/17 - Allergies Allergies/Adverse Reactions: Allergies Allergy/AdvReac Type Severity Reaction Status Date / Time No Known Allergies Allergy Verified 10/08/17 18:04 Review of Systems ROS Statement: Except As Marked, All Systems Reviewed And Found Negative Constitutional: Positive for: Malaise, Other (fatigue) Cardiovascular: Positive for: Chest Pain Respiratory: Negative for: Shortness of Breath Musculoskeletal: Negative for: Other (leg swelling) Physical Exam - Reviewed Nursing Documentation Reviewed: Yes Vital Signs Reviewed: Yes - Physical Exam Appears: Positive for: Non-toxic, No Acute Distress Head Exam: Positive for: ATRAUMATIC, NORMOCEPHALIC Skin: Positive for: Warm, Dry Eye Exam: Positive for: EOMI, PERRL ENT: Positive for: Pharynx Is (clear) Neck: Positive for: Painless ROM, Supple Cardiovascular/Chest: Positive for: Regular Rate, Rhythm. Negative for: Edema, Murmur Respiratory: Positive for: Normal Breath Sounds. Negative for: Rales, Rhonchi, Wheezing, Respiratory Distress Gastrointestinal/Abdominal: Positive for: Soft. Negative for: Tenderness Back: Positive for: Normal Inspection. Negative for: Decreased ROM Extremity: Positive for: Normal ROM. Negative for: Pedal Edema, Deformity Lymphatic: Negative for: Adenopathy Neurologic/Psych: Positive for: Alert. Negative for: Motor/Sensory Deficits - Laboratory Results Result Diagrams: 02/14/18 23:25 02/14/18 23:25 - ECG ECG Rhythm: Positive for: Normal QRS, Normal ST Segment, Sinus Rhythm (normal) Rate: 70 O2 Sat by Pulse Oximetry: 98 (RA) Pulse Ox Interpretation: Normal Medical Decision Making Medical Decision Making: Time: 23:05 Impression: Chest pain Differentials (including but not limited to): anxiety, costochondritis, reflux, acute coronary syndrome Plan: --EKG --CMP --Drug Screen --Magnesium --Phosphorous --Thyroid Stimulating Hormone --Troponin --ED Urine Dipstick --CBC --D Dimer --CXR 4am Labs and CXR with no acute findings (including negative serial enzymes.) DW pt findings and plan of care. Stable for dc. Scribe Attestation: Documented by Shanna Nevarez acting as a scribe for Aubrie Ramires MD. Scribe Attestation: All medical record entries made by the Scribe were at my direction and personally dictated by me. I have reviewed the chart and agree that the record accurately reflects my personal performance of the history, physical exam, medical decision making, and the department course for this patient. I have also personally directed, reviewed, and agree with the discharge instructions and disposition. Disposition - Clinical Impression Clinical Impression: Chest pain - Disposition Referrals: Eddie Eid MD [Family Provider] - 02/16/18 Disposition: Routine/Home Disposition Time: 15:30 Condition: STABLE Instructions: Chest Pain
[2018-02-15 04:19] VITALS: BP 110/68; PULSE 66; RESP 17; TEMP 98.4
--- NOTE | 2018-02-15 10:07 | RAD ---
HISTORY: chest pain COMPARISON: Chest radiograph dated 10/22/2017 TECHNIQUE: Chest PA and lateral FINDINGS: LUNGS: No active pulmonary disease. PLEURA: No significant pleural effusion identified. No pneumothorax apparent. CARDIOVASCULAR: Normal. OSSEOUS STRUCTURES: Unchanged. VISUALIZED UPPER ABDOMEN: Epigastric region surgical material redemonstrated. Right upper quadrant surgical clips redemonstrated. OTHER FINDINGS: None. IMPRESSION: No active disease.
--- NOTE | 2018-02-15 14:58 | CARD ---
APPROVED REPORT EKG Measurement Heart [id number] [id number] <Conclusion> Normal sinus rhythm Normal ECG
== END 2018-02-15 04:24 | disposition home or self-care (01) ==
LOC: H.ER 22:37
DX: R07.89 Other chest pain (principal); E03.9 Hypothyroidism, unspecified; F41.9 Anxiety disorder, unspecified; I10 Essential (primary) hypertension; Z82.49 Family history of ischemic heart disease and other diseases of the circulatory system

== ENCOUNTER 2018-04-16 15:22 | Emergency (ER) | payer MEDICAID ==
[2018-04-16 15:23] VITALS: BMI 31.7
[2018-04-16 15:38] VITALS: O2SAT 100
--- NOTE | 2018-04-16 16:51 | ED PDOC ---
HPI: Chest Pain Time Seen by Provider: 04/16/18 15:52 Chief Complaint (Nursing): Chest Pain Chief Complaint (Provider): chest pain History Per: Patient History/Exam Limitations: no limitations Onset/Duration Of Symptoms: Hrs Current Symptoms Are (Timing): Better Pain Scale Rating Of: 3 Quality: "Pain" Associated Symptoms: denies: Nausea, Dyspnea, Diaphoresis, Syncope Modifying Factors: None Exacerbating Factors: None Alleviating Factors: None Additional History Per: Patient Additional Complaint(s): 53 yr old F presents to ED with complaint of upper middle chest pain (10) and palpitations which started 1 hr prior to arrival. PMHx includes hypertension, anxiety, hypothyroidism and chronic b/l shoulder pain. Denies SOB, nausea, vomiting, sweating, left arm pain, visual changes, syncope or headaches. [facility] records reviewed, patient had nuclear myocardial perfusion test which showed LVEF of 64% and mild reversible apical defect. She did not try anything to alleviate the pain, nothing exacerbates the pain. PMD: Dr. Eid Hydraulic Press Tender: Dr. Herrera Pain management: Dr. Mcrae - Risk Factors PE Risk Factors: Neg: Extremity Immobilization/Fx, Decreased Mobilty /Activity, Recent Major Surgery, Recent Hospitalization, Active Cancer, Previous DVT, Previous PE TAD Risk Factors: Pos: Hypertension Past Medical History Vital Signs: Last Vital Signs Temp 98.1 F 04/16/18 15:34 Pulse 76 04/16/18 16:11 Resp 18 04/16/18 15:34 BP 118/58 L 04/16/18 16:11 Pulse Ox 100 04/16/18 18:09 - Medical History PMH: Anemia, Anxiety, Gall Bladder Disease, HTN, Hypothyroidism Denies: Chronic Kidney Disease - Surgical History Surgical History: Cholecystectomy - Family History Family History: States: Unknown Family Hx, [place], CAD - Living Arrangements Living Arrangements: With Family - Social History Current smoker - smoking cessation education provided: No Ex-Smoker (has not smoked in the last 12 months): No Alcohol: None Drugs: Denies - Immunization History Hx Tetanus Toxoid Vaccination: No Hx Influenza Vaccination: No Hx Pneumococcal Vaccination: No - Home Medications Home Medications: Ambulatory Orders Medication Instructions Recorded Alprazolam [Xanax] 0.25 mg PO PRN PRN 10/22/17 Enalapril Maleate [Vasotec] 5 mg PO DAILY 10/22/17 Levothyroxine [Synthroid] 75 mcg PO DAILY 10/22/17 - Allergies Allergies/Adverse Reactions: Allergies Allergy/AdvReac Type Severity Reaction Status Date / Time No Known Allergies Allergy Verified 04/16/18 15:38 DEMOND Risk Score for UA/NSTEMI - DEMOND Risk Score Age > 64: NO 3 or more CAD Risk Factors: NO Known CAD (Stenosis greater than 50%): NO Aspirin use in past 7 days: YES Severe Angina: NO EKG ST changes greater than 0.5mm: NO Positive Cardiac Marker: NO DEMOND Score: 1 Risk %: 5% Curb-65 Severity Score - CURB-65 Severity Score Confusion: No Respiratory Rate greater than/equal to 30: No Systolic BP <90 or Diastolic BP less than/equal 60mmHg: No Age >64: No Curb-65 Score: 0 Percentage 30-day mortality: 0.6% Wells Criteria for PE - Wells Criteria for Pulmonary Embolism Clinical Signs and Symptoms of DVT: No P.E is #1 Diagnosis, or Equally Likely: No Heart Rate >100: No Immobilization at least 3 days;Surgery previous 4 weeks: No Previous, objectively diagnosed PE or DVT: No Hemoptysis: No Malignancy w/treatment within 6 months, or palliative: No Total Score: 0 Review of Systems Constitutional: Negative for: Fever, Chills Eyes: Negative for: Vision Change ENT: Negative for: Nose Discharge, Throat Pain Cardiovascular: Negative for: Chest Pain, Palpitations Respiratory: Negative for: Cough, Shortness of Breath Gastrointestinal: Negative for: Nausea, Vomiting, Abdominal Pain, Diarrhea, Constipation Genitourinary Female: Negative for: Dysuria, Frequency, Hematuria Musculoskeletal: Negative for: Neck Pain, Shoulder Pain, Arm Pain Skin: Negative for: Rash, Lesions Neurological: Negative for: Weakness, Change in Speech, Confusion, Altered Mental Status, Headache, Dizziness Psych: Positive for: Anxiety Physical Exam - Physical Exam Appears: Positive for: No Acute Distress Head Exam: Positive for: ATRAUMATIC, NORMOCEPHALIC Skin: Positive for: Normal Color, Warm, Dry Eye Exam: Positive for: EOMI, PERRL ENT: Negative for: Pharyngeal Erythema, Tonsillar Exudate Neck: Positive for: Painless ROM, Supple Cardiovascular/Chest: Positive for: Regular Rate, Rhythm. Negative for: Edema, JVD Respiratory: Positive for: Normal Breath Sounds. Negative for: Crackles, Rales , Rhonchi Pulses-Carotid (L): 2+ Pulses-Carotid (R): 2+ Pulses-Dorsalis Pedis (L): 2+ Pulses-Dorsalis Pedis (R): 2+ Pulses-Post. Tibialis (L): 2+ Pulses-Post. Tibialis (R): 2+ Pulses-Radial (L): 2+ Pulses-Radial (R): 2+ Gastrointestinal/Abdominal: Positive for: Bowel Sounds (present), Soft (obese). Negative for: Tenderness Back: Positive for: Normal Inspection. Negative for: L CVA Tenderness, R CVA Tenderness Extremity: Positive for: Normal ROM. Negative for: Tenderness, Pedal Edema, Calf Tenderness, Swelling Lymphatic: Negative for: Adenopathy Neurologic/Psych: Positive for: Alert, government affairs specialist II-XII (grossly intact), Oriented, Mood/Affect (normal/full range), Gait (normal). Negative for: Motor/Sensory Deficits - ECG O2 Sat by Pulse Oximetry: 100 - Progress ED Course And Treament: -EKG: normal sinus rhythm, no significant ST-T changes -Troponin: negative -Tylenol 650mg PO once -pain improved, patient remained with stable vital signs, tolerated PO fluids and solids Disposition - Clinical Impression Clinical Impression: Chest pain - Patient ED Disposition Is Patient to be Admitted: No Counseled Patient/Family Regarding: Diagnosis, Need For Followup - Disposition Referrals: Eddie Eid MD [Family Provider] - Disposition: Routine/Home Disposition Time: 18:08 Condition: STABLE Additional Instructions: -Follow up with your PMD within 2-3 days -Return to ED if symptoms persist, worsen or if any concerns. Instructions: Chest Pain (DC) Forms: [employer] (Czech)
[2018-04-16 18:41] VITALS: BP 122/60; PULSE 78; RESP 16; TEMP 97.3
== END 2018-04-16 18:40 | disposition home or self-care (01) ==
LOC: H.ER 15:22
DX: R07.89 Other chest pain (principal); E03.9 Hypothyroidism, unspecified; F41.9 Anxiety disorder, unspecified; I10 Essential (primary) hypertension

== ENCOUNTER 2018-05-07 14:48 | Emergency (ER) | payer MEDICAID ==
[2018-05-07 14:49] VITALS: BMI 31.7
[2018-05-07 15:02] VITALS: BP 119/80; PULSE 82; RESP 17; TEMP 98.2; O2SAT 99
--- NOTE | 2018-05-07 15:45 | ED PDOC ---
Lower Extremity Pain/Injury Time Seen by Provider: 05/07/18 15:07 Chief Complaint (Nursing): Lower Extremity Problem/Injury Chief Complaint (Provider): bilteral knee pain History Per: Patient History/Exam Limitations: no limitations Onset/Duration Of Symptoms: Days (x1 month), Worse Since Current Symptoms Are (Timing): Still Present Additional Complaint(s): Bridgett Mosquera is a 53 year old female, with a past medical history of osteoarthritis, anemia and HTN, who presents to the emergency department complaining of a worsening bilateral knee pain onset for x1 month. Patient states the pain is worst on the left than the right knee. She has been taking Tylenol with no relief. Patient is currently seeing Dr. Mcrae, pain management, for her back and shoulder. Patient states she spoke with Dr. Mcrae regarding the knee pain but was told he wanted to take care of the shoulders first. Patient states she didn't take Tramadol because it upsets her stomach. Pt however does fill Rx for tramaodl every motnh for the last 6 months. She denies any injuries , falls, fever, chills or other medical complaints. PMD: Eddie Eid Past Medical History Reviewed: Historical Data, Nursing Documentation, Vital Signs Vital Signs: Last Vital Signs Temp 98.2 F 05/07/18 14:59 Pulse 82 05/07/18 14:59 Resp 17 05/07/18 14:59 BP 119/80 05/07/18 14:59 Pulse Ox 99 05/07/18 14:59 - Medical History PMH: Anemia, Anxiety, Gall Bladder Disease, HTN, Hypothyroidism Denies: Chronic Kidney Disease - Surgical History Surgical History: Cholecystectomy - Family History Family History: States: Unknown Family Hx, [place], CAD - Immunization History Hx Tetanus Toxoid Vaccination: No Hx Influenza Vaccination: No Hx Pneumococcal Vaccination: No - Home Medications Home Medications: Ambulatory Orders Medication Instructions Recorded Alprazolam [Xanax] 0.25 mg PO PRN PRN 10/22/17 Enalapril Maleate [Vasotec] 5 mg PO DAILY 10/22/17 Levothyroxine [Synthroid] 75 mcg PO DAILY 10/22/17 - Allergies Allergies/Adverse Reactions: Allergies Allergy/AdvReac Type Severity Reaction Status Date / Time No Known Allergies Allergy Verified 05/07/18 14:59 Review of Systems ROS Statement: Except As Marked, All Systems Reviewed And Found Negative Constitutional: Negative for: Fever, Chills Musculoskeletal: Positive for: Leg Pain (b/l knee pain) Physical Exam - Reviewed Nursing Documentation Reviewed: Yes Vital Signs Reviewed: Yes - Physical Exam Appears: Positive for: Non-toxic, No Acute Distress (walking in the ED w/o limp) Head Exam: Positive for: ATRAUMATIC, NORMOCEPHALIC Skin: Positive for: Normal Color, Warm, Dry Eye Exam: Positive for: Normal appearance, EOMI, PERRL Neck: Positive for: Painless ROM Respiratory: Negative for: Respiratory Distress Extremity: Positive for: Normal ROM (upper and lower extremities). Negative for : Deformity, Swelling Neurologic/Psych: Positive for: Alert, Oriented - ECG O2 Sat by Pulse Oximetry: 99 (RA) Pulse Ox Interpretation: Normal Medical Decision Making Medical Decision Making: Time: 15:07 Initial Impression: knee pain Initial Plan: --Knee 3 views BI [RAD] --Toradol 30 mg IM --Reevaluation Toradol was not given right away. Pt went to restroom however she was on the phone and forgot to urinate in cup. Pt gave urine for at 1635. Bones lesion, left femur Knee with DJD, no acute fracture or dislocation Scribe Attestation: Documented by Otto Ferreira, acting as a scribe for Ana Anglin PA-C Provider Scribe Attestation: All medical record entries made by the Scribe were at my direction and personally dictated by me. I have reviewed the chart and agree that the record accurately reflects my personal performance of the history, physical exam, medical decision making, and the department course for this patient. I have also personally directed, reviewed, and agree with the discharge instructions and disposition. Disposition - Clinical Impression Clinical Impression: Bone lesion, Arthritis - Patient ED Disposition Is Patient to be Admitted: No Counseled Patient/Family Regarding: Diagnosis, Need For Followup - Disposition Referrals: Florence Sloan MD [Staff Provider] - Jose Mcrae MD [Staff Provider] - Disposition: Routine/Home Disposition Time: 16:34 Condition: STABLE Additional Instructions: Please follow-up with peer support specialist and Dr. Berry. Instructions: Osteoarthritis (DC) Forms: [employer] ([place])
--- NOTE | 2018-05-07 16:34 | RAD ---
PROCEDURE: Bilateral Knee Radiographs. HISTORY: bilateral knee pain COMPARISON: None. FINDINGS: BONES: Right Knee: No fracture Left Knee: No fracture JOINTS: Right Knee: osteoarthritis. Left knee: osteoarthritis. SOFT TISSUES: Right Knee: Normal. Left Knee: Normal. JOINT EFFUSION: Right Knee: Possible small Left Knee: None. OTHER FINDINGS: Incidental left benign-appearing bone island distal femoral diaphysis IMPRESSION: Bilateral osteoarthrosis. Possible small right knee joint effusion.
== END 2018-05-07 16:53 | disposition home or self-care (01) ==
LOC: H.ER 14:48
DX: M25.561 Pain in right knee (principal); M25.562 Pain in left knee; E03.9 Hypothyroidism, unspecified; F41.9 Anxiety disorder, unspecified; I10 Essential (primary) hypertension
CPT/HCPCS: 73562; 81025; 96372; 99283; J1885

== ENCOUNTER 2018-08-03 16:43 | Emergency (ER) | payer MEDICAID ==
[2018-08-03 16:53] VITALS: BMI 32.1
--- NOTE | 2018-08-03 17:31 | ED PDOC ---
HPI: Chest Pain Time Seen by Provider: 08/03/18 17:00 Chief Complaint (Nursing): Chest Pain Chief Complaint (Provider): Chest Pain History Per: Patient History/Exam Limitations: no limitations Onset/Duration Of Symptoms: Hrs, Intermittent Episodes Current Symptoms Are (Timing): Still Present Quality: "Pain" Exacerbating Factors: None Additional Complaint(s): 53 y/o female with a PMHx of chronic back pain, multiple episodes of chest wall pain, anemia and hypothyroidism presents to the ED complaining of intermittent chest pain, onset this morning. Patient reports of having midsternal chest pain in the past but states this is different because it is located on the left side and radiates to the left upper back and left arm. Patient reports pain is not affected by movement. Denies fever, cough, vomiting, leg pain, history of Pulmonary Embolisms and URI symptoms. PMD: Eddie Eid Past Medical History Reviewed: Historical Data, Nursing Documentation, Vital Signs Vital Signs: Last Vital Signs Temp 98.2 F 08/03/18 16:52 Pulse 79 08/03/18 18:44 Resp 17 08/03/18 17:57 BP 120/67 08/03/18 17:57 Pulse Ox 99 08/03/18 18:44 - Medical History PMH: Anemia, Anxiety, Gall Bladder Disease, HTN, Hypothyroidism Denies: Chronic Kidney Disease - Surgical History Surgical History: Cholecystectomy Other surgeries: Abdominal Cosmetic Surgery - Family History Family History: States: Unknown Family Hx, [place], CAD - Immunization History Hx Tetanus Toxoid Vaccination: No Hx Influenza Vaccination: No Hx Pneumococcal Vaccination: No - Home Medications Home Medications: Ambulatory Orders Medication Instructions Recorded Alprazolam [Xanax] 0.25 mg PO PRN PRN 10/22/17 Enalapril Maleate [Vasotec] 5 mg PO DAILY 10/22/17 Levothyroxine [Synthroid] 75 mcg PO DAILY 10/22/17 - Allergies Allergies/Adverse Reactions: Allergies Allergy/AdvReac Type Severity Reaction Status Date / Time No Known Allergies Allergy Verified 05/07/18 14:59 Review of Systems ROS Statement: Except As Marked, All Systems Reviewed And Found Negative Constitutional: Negative for: Fever Cardiovascular: Positive for: Chest Pain Respiratory: Positive for: Cough Gastrointestinal: Negative for: Vomiting Musculoskeletal: Positive for: Arm Pain (left arm). Negative for: Back Pain ( left upper) Physical Exam - Reviewed Nursing Documentation Reviewed: Yes Vital Signs Reviewed: Yes - Physical Exam Appears: Positive for: No Acute Distress Head Exam: Positive for: ATRAUMATIC, NORMOCEPHALIC Skin: Positive for: Normal Color, Warm, Dry Eye Exam: Positive for: Normal appearance, EOMI, PERRL Neck: Positive for: Normal, Painless ROM, Supple Cardiovascular/Chest: Positive for: Regular Rate, Rhythm. Negative for: Murmur Respiratory: Positive for: Normal Breath Sounds. Negative for: Respiratory Distress Gastrointestinal/Abdominal: Positive for: Normal Exam, Soft. Negative for: Tenderness Back: Positive for: Normal Inspection. Negative for: L CVA Tenderness, R CVA Tenderness, Vertebral Tenderness Extremity: Positive for: Normal ROM. Negative for: Pedal Edema, Deformity Neurologic/Psych: Positive for: Alert, Oriented. Negative for: Motor/Sensory Deficits - Laboratory Results Result Diagrams: 08/03/18 17:40 08/03/18 17:40 - ECG Rate: 79 O2 Sat by Pulse Oximetry: 99 (RA) Pulse Ox Interpretation: Normal Medical Decision Making Medical Decision Making: Time: 1729 Plan: -- CMP -- Troponin I -- CBC with Differentials -- CXR Two Views Time: 1837 CXR RESULTS FINDINGS: LUNGS: No active pulmonary disease. PLEURA: No significant pleural effusion identified. No pneumothorax apparent. CARDIOVASCULAR: No radiographic findings to suggest acute or significant cardiovascular disease. OSSEOUS STRUCTURES: No significant abnormalities. VISUALIZED UPPER ABDOMEN: Normal. Postoperative changes, suture line left upper quadrant unchanged. OTHER FINDINGS: None. IMPRESSION: No active disease. No significant interval change compared to the prior examination(s). Time: 1837 -- Labs demonstrate no clinically significant abnormalities. Time: 1899 -- Patient endorsed to Dr. Collins, pending second Troponin levels. Scribe Attestation: Documented by Alexx Dickinson acting as a scribe for Eusebia Smith MD. Provider Scribe Attestation: All medical record entries made by the Scribe were at my direction and personally dictated by me. I have reviewed the chart and agree that the record accurately reflects my personal performance of the history, physical exam, medical decision making, and the department course for this patient. I have also personally directed, reviewed, and agree with the discharge instructions and disposition. Disposition - Patient ED Disposition Is Patient to be Admitted: Transfer of Care - Disposition Disposition: Transfer of Care Disposition Time: 19:00 Condition: FAIR Forms: [employer] (Sinhala) Patient Signed Over To: Wale Collins Handoff Comments: pending second troponin
[2018-08-03 18:06] LABS: BASO % 0.5 % (0.0-2.0); EOS # 0.1 K/uL (0.0-0.7); EOS % 1.2 % (0.0-4.0); HEMOGLOBIN 10.8 g/dL (12.0-16.0); LYMPH # 2.2 K/uL (1.0-4.3); MEAN CORPUSCULAR HEMOGLOBIN 25.7 pg (27.0-31.0); MEAN PLATELET VOLUME 9.3 fl (7.2-11.7); MONO # 0.5 K/uL (0.0-0.8); MONO % 7.5 % (0.0-10.0); NEUT # 3.9 K/uL (1.8-7.0); NEUT % 57.8 % (50.0-75.0); RBC 4.2 Mil/uL (3.80-5.20); RED CELL DISTRIBUTION WIDTH 15.2 % (11.5-14.5); WHITE BLOOD COUNT 6.7 K/uL (4.8-10.8)
[2018-08-03 18:28] LABS: ALBUMIN 3.9 g/dL (3.5-5.0); ALT/SGPT 31 U/L (9-52); AST/SGOT 31 U/L (14-36); BLOOD UREA NITROGEN 15 mg/dl (7-17); GFR NON-AFRICAN AMERICAN > 60
--- NOTE | 2018-08-03 18:39 | RAD ---
Date of service: 08/03/2018 HISTORY: cp COMPARISON: 02/14/2018 TECHNIQUE: Chest PA and lateral FINDINGS: LUNGS: No active pulmonary disease. PLEURA: No significant pleural effusion identified. No pneumothorax apparent. CARDIOVASCULAR: No radiographic findings to suggest acute or significant cardiovascular disease. OSSEOUS STRUCTURES: No significant abnormalities. VISUALIZED UPPER ABDOMEN: Normal. Postoperative changes, suture line left upper quadrant unchanged. OTHER FINDINGS: None. IMPRESSION: No active disease. No significant interval change compared to the prior examination(s).
--- NOTE | 2018-08-03 19:19 | ED PDOC ---
- Laboratory Results Result Diagrams: 08/03/18 17:40 08/03/18 17:40 - ECG O2 Sat by Pulse Oximetry: 99 (RA) Pulse Ox Interpretation: Normal Medical Decision Making Medical Decision Making: Time: 1899 -- Patient endorsed to me by Dr. Smith, pending second troponin Time: 2154 -- Repeat troponin level results are normal. Patient remains stable. Patient to be discharged home with a diagnosis of atypical chest pain. Scribe Attestation: Documented by Alexx Dickinson acting as a scribe for Wale Collins MD. Provider Scribe Attestation: All medical record entries made by the Scribe were at my direction and personally dictated by me. I have reviewed the chart and agree that the record accurately reflects my personal performance of the history, physical exam, medical decision making, and the department course for this patient. I have also personally directed, reviewed, and agree with the discharge instructions and disposition. Disposition Counseled Patient/Family Regarding: Studies Performed, Diagnosis - Clinical Impression Clinical Impression: Atypical chest pain - POA Present On Arrival: None - Disposition Disposition: Routine/Home Disposition Time: 21:55 Condition: STABLE Instructions: Chest Pain That Is Not Caused by the Heart (DC) Forms: [facility] [employer] (German)
[2018-08-03 20:16] VITALS: RESP 16
[2018-08-03 22:26] VITALS: BP 115/66; PULSE 72; TEMP 98.3
[2018-08-03 23:15] VITALS: O2SAT 99
== END 2018-08-03 22:25 | disposition home or self-care (01) ==
LOC: H.ER 16:43
DX: R07.9 Chest pain, unspecified (principal); I10 Essential (primary) hypertension; G89.29 Other chronic pain; Z82.49 Family history of ischemic heart disease and other diseases of the circulatory system

== ENCOUNTER 2018-11-18 17:04 | Emergency (ER) | payer MEDICAID ==
[2018-11-18 17:04] VITALS: BMI 32.1
--- NOTE | 2018-11-18 22:14 | ED PDOC ---
HPI: Chest Pain Time Seen by Provider: 11/18/18 21:28 Chief Complaint (Nursing): Chest Pain Chief Complaint (Provider): Chest Pain History Per: Patient History/Exam Limitations: no limitations Onset/Duration Of Symptoms: Hrs Current Symptoms Are (Timing): Gone Now Associated Symptoms: denies: Nausea, Diaphoresis Additional Complaint(s): Bridgett Mosquera is a 53 year old female with a past medical history of hypertension and hypothyroidism who is presenting to the ED for evaluation of chest pain onset around 3:50 pm today. Patient states that she had a 20 minute episode of chest pain with pain radiating to the back, and it resolved on its own. She reports that she has had similar episodes in the past and workups in the ED which were normal as well as a normal cardiac catheterization. She denies any nausea, vomiting, or diaphoresis. PMD: Yvan Eid Past Medical History Reviewed: Historical Data, Nursing Documentation, Vital Signs Vital Signs: Last Vital Signs Temp 97.9 F 11/18/18 20:35 Pulse 70 11/18/18 20:35 Resp 16 11/18/18 20:35 BP 126/80 11/18/18 20:35 Pulse Ox 100 11/18/18 20:35 - Medical History PMH: Anemia, Anxiety, Gall Bladder Disease, HTN, Hypothyroidism Denies: Chronic Kidney Disease - Surgical History Surgical History: Cholecystectomy Other surgeries: gastric bypass - Family History Family History: States: Unknown Family Hx, [place], CAD - Social History Current smoker - smoking cessation education provided: No Alcohol: None Drugs: Denies - Immunization History Hx Tetanus Toxoid Vaccination: No Hx Influenza Vaccination: No Hx Pneumococcal Vaccination: No - Home Medications Home Medications: Ambulatory Orders Medication Instructions Recorded Alprazolam [Xanax] 0.25 mg PO PRN PRN 10/22/17 RX: Enalapril Maleate [Vasotec] 5 mg PO DAILY 10/22/17 RX: Levothyroxine [Synthroid] 75 mcg PO DAILY 10/22/17 - Allergies Allergies/Adverse Reactions: Allergies Allergy/AdvReac Type Severity Reaction Status Date / Time No Known Allergies Allergy Verified 11/18/18 20:35 Review of Systems ROS Statement: Except As Marked, All Systems Reviewed And Found Negative Constitutional: Negative for: Sweats Cardiovascular: Positive for: Chest Pain Gastrointestinal: Negative for: Nausea, Vomiting Physical Exam - Reviewed Nursing Documentation Reviewed: Yes Vital Signs Reviewed: Yes - Physical Exam Appears: Positive for: Non-toxic, No Acute Distress Head Exam: Positive for: ATRAUMATIC, NORMAL INSPECTION, NORMOCEPHALIC Skin: Positive for: Normal Color, Warm, DRY Eye Exam: Positive for: EOMI, Normal appearance, PERRL ENT: Positive for: Normal ENT Inspection Neck: Positive for: Normal, Painless ROM Cardiovascular/Chest: Positive for: Regular Rate, Rhythm. Negative for: Murmur Respiratory: Positive for: Normal Breath Sounds. Negative for: Respiratory Distress Gastrointestinal/Abdominal: Positive for: Normal Exam, Soft. Negative for: Tenderness Back: Positive for: Normal Inspection. Negative for: L CVA Tenderness, R CVA Tenderness Extremity: Positive for: Normal ROM. Negative for: Deformity, Swelling Neurologic/Psych: Positive for: Alert, Oriented. Negative for: Motor/Sensory Deficits - Laboratory Results Result Diagrams: 11/19/18 00:00 11/19/18 00:00 - ECG O2 Sat by Pulse Oximetry: 100 (RA) Pulse Ox Interpretation: Normal Medical Decision Making Medical Decision Making: Time: 21:31 Impression: 53 year old female with chest pain, asymptomatic at present Plan: --EKG --CMP --Troponin --ED Urine --CBC 01:00 ---Labs reviewed and reveal no clinically significant abnormalities. Patient remains free of chest pain. Diagnosis is atypical chest pain. ------ Scribe Attestation: Documented by Shanna Nevarez, acting as a scribe for Wale Collins MD. Provider Scribe Attestation: All medical record entries made by the Scribe were at my direction and personally dictated by me. I have reviewed the chart and agree that the record accurately reflects my personal performance of the history, physical exam, medical decision making, and the department course for this patient. I have also personally directed, reviewed, and agree with the discharge instructions and disposition. Disposition - Clinical Impression Clinical Impression: Atypical chest pain - Patient ED Disposition Is Patient to be Admitted: No - Disposition Disposition: Routine/Home Disposition Time: 01:10 Condition: STABLE Forms: [facility] (Arabic)
[2018-11-19 03:13] LABS: BASO % 0.5 % (0.0-2.0); EOS # 0.1 K/uL (0.0-0.7); EOS % 1.4 % (0.0-4.0); HEMOGLOBIN 10.6 g/dL (12.0-16.0); LYMPH # 2.3 K/uL (1.0-4.3); LYMPH % 41.1 % (20.0-40.0); MEAN CELL VOLUME 77.8 fl (81.0-99.0); MEAN CORPUSCULAR HEMOGLOBIN 25.5 pg (27.0-31.0); MEAN CORPUSCULAR HGB CONC 32.8 g/dL (33.0-37.0); MEAN PLATELET VOLUME 9.5 fl (7.2-11.7); MONO # 0.3 K/uL (0.0-0.8); MONO % 6.3 % (0.0-10.0); NEUT # 2.8 K/uL (1.8-7.0); NEUT % 50.7 % (50.0-75.0); NRBC % 0.1 % (0.0-0.0); RBC 4.14 Mil/uL (3.80-5.20); RED CELL DISTRIBUTION WIDTH 15.2 % (11.5-14.5); WHITE BLOOD COUNT 5.5 K/uL (4.8-10.8)
[2018-11-19 03:22] LABS: GFR NON-AFRICAN AMERICAN > 60
[2018-11-19 03:23] LABS: ALB/GLOB RATIO 1.1 (1.0-2.1); ALT/SGPT 29 U/L (9-52); AST/SGOT 31 U/L (14-36); BLOOD UREA NITROGEN 13 mg/dl (7-17); CALCIUM 9.3 mg/dL (8.4-10.2)
[2018-11-19 03:47] VITALS: BP 117/59; PULSE 78; RESP 18; TEMP 98.1
[2018-11-19 22:39] VITALS: O2SAT 100
== END 2018-11-19 01:30 | disposition home or self-care (01) ==
LOC: H.ER 17:04
DX: R07.9 Chest pain, unspecified (principal)

== ENCOUNTER 2019-03-30 17:12 | Emergency (ER) | payer MEDICAID ==
[2019-03-30 17:13] VITALS: BMI 32.1
[2019-03-30 17:21] VITALS: TEMP 97.8
--- NOTE | 2019-03-30 18:06 | ED PDOC ---
HPI: General Adult Time Seen by Provider: 03/30/19 17:56 Chief Complaint (Nursing): Dizziness/Lightheaded Chief Complaint (Provider): DIZZNESS/PALPITATIONS History Per: Patient (53 Y/O FEMALE H/O HYPOTHYROIDISM/ANEMIA HERE WITH A QUICK PULLING SENSATION IN CHEST FOR DURATION OF SECOND. NOTES ADDITIONAL LIGHT- HEADEDNESS AND SENSATION OF SOB. DENIES ANY FEVERS/CHILLS/COUGH.) Past Medical History Reviewed: Historical Data, Nursing Documentation, Vital Signs Vital Signs: Last Vital Signs Temp 97.8 F 03/30/19 17:20 Pulse 88 03/30/19 17:20 Resp 16 03/30/19 17:20 BP 135/73 03/30/19 17:20 Pulse Ox 100 03/30/19 17:20 Primary Care Provider: FAMILY PROVIDER,NO - Medical History PMH: Anemia, Anxiety, Gall Bladder Disease, HTN, Hypothyroidism Denies: Chronic Kidney Disease - Surgical History Surgical History: Cholecystectomy - Family History Family History: States: Unknown Family Hx, ID, CAD - Immunization History Hx Tetanus Toxoid Vaccination: No Hx Influenza Vaccination: No Hx Pneumococcal Vaccination: No - Home Medications Home Medications: Ambulatory Orders Medication Instructions Recorded Alprazolam [Xanax] 0.25 mg PO PRN PRN 10/22/17 Enalapril Maleate [Vasotec] 5 mg PO DAILY 10/22/17 Levothyroxine [Synthroid] 75 mcg PO DAILY 10/22/17 - Allergies Allergies/Adverse Reactions: Allergies Allergy/AdvReac Type Severity Reaction Status Date / Time No Known Allergies Allergy Verified 03/30/19 17:19 Review of Systems ROS Statement: Except As Marked, All Systems Reviewed And Found Negative Physical Exam - Reviewed Nursing Documentation Reviewed: Yes Vital Signs Reviewed: Yes - Physical Exam Appears: Positive for: Well, Non-toxic, No Acute Distress Head Exam: Positive for: ATRAUMATIC, NORMAL INSPECTION, NORMOCEPHALIC Skin: Positive for: Normal Color, Warm, DRY Eye Exam: Positive for: EOMI, Normal appearance, PERRL ENT: Positive for: Normal ENT Inspection Neck: Positive for: Normal, Painless ROM Cardiovascular/Chest: Positive for: Regular Rate, Rhythm Respiratory: Positive for: CNT, Normal Breath Sounds Gastrointestinal/Abdominal: Positive for: Normal Exam, Soft Back: Positive for: Normal Inspection Extremity: Positive for: Normal ROM Neurological/Psych: Positive for: Awake, Alert, Normal Tone - Laboratory Results Result Diagrams: 03/30/19 19:05 03/30/19 19:05 - ECG ECG Rhythm: Positive for: Sinus Rhythm (NSR 84BPM; NO ECTOPY; NO ACUTE CHANGES) O2 Sat by Pulse Oximetry: 100 - Progress ED Course And Treament: CXR: NAD Disposition - Clinical Impression Clinical Impression: Chest pain - Patient ED Disposition Is Patient to be Admitted: Transfer of Care - Disposition Disposition: Transfer of Care Disposition Time: 20:08 Condition: FAIR Instructions: Chest Pain Patient Signed Over To: Jacqueline Tyson Handoff Comments: PENDING TSH
--- NOTE | 2019-03-30 18:23 | RAD ---
Date of service: 03/30/2019 HISTORY: SOB COMPARISON: 08/03/2018 FINDINGS: LUNGS: No active pulmonary disease. PLEURA: No significant pleural effusion identified, no pneumothorax apparent. CARDIOVASCULAR: No atherosclerotic calcification present Normal. OSSEOUS STRUCTURES: No significant abnormalities. VISUALIZED UPPER ABDOMEN: Normal. OTHER FINDINGS: None. IMPRESSION: No active disease. No significant interval change compared to the prior examination(s).
[2019-03-30 19:17] LABS: BASO % 0.4 % (0.0-2.0); EOS # 0.1 K/uL (0.0-0.7); EOS % 1.6 % (0.0-4.0); HEMOGLOBIN 10.5 g/dL (12.0-16.0); LYMPH % 35.9 % (20.0-40.0); MEAN CELL VOLUME 78.1 fl (81.0-99.0); MEAN CORPUSCULAR HEMOGLOBIN 25.3 pg (27.0-31.0); MEAN CORPUSCULAR HGB CONC 32.5 g/dL (33.0-37.0); MEAN PLATELET VOLUME 9.5 fl (7.2-11.7); MONO # 0.5 K/uL (0.0-0.8); MONO % 9.3 % (0.0-10.0); NEUT % 52.8 % (50.0-75.0); RBC 4.16 Mil/uL (3.80-5.20); RED CELL DISTRIBUTION WIDTH 14.9 % (11.5-14.5); WHITE BLOOD COUNT 5.6 K/uL (4.8-10.8)
[2019-03-30 19:41] LABS: ALB/GLOB RATIO 1.2 (1.0-2.1); ALT/SGPT 27 U/L (9-52); AST/SGOT 31 U/L (14-36); BLOOD UREA NITROGEN 12 mg/dl (7-17); CALCIUM 9.1 mg/dL (8.4-10.2); GFR NON-AFRICAN AMERICAN > 60
--- NOTE | 2019-03-30 20:44 | ED PDOC ---
- Laboratory Results Result Diagrams: 03/30/19 19:05 03/30/19 19:05 Lab Results: Troponin I < 0.0120 ng/mL (0.00-0.120) 03/30/19 19:05 Total Bilirubin 0.3 mg/dl (0.2-1.3) 03/30/19 19:05 AST 31 U/L (14-36) 03/30/19 19:05 ALT 27 U/L (9-52) 03/30/19 19:05 Alkaline Phosphatase 108 U/L (38-126) 03/30/19 19:05 Total Protein 7.4 G/DL (6.3-8.2) 03/30/19 19:05 Albumin 4.0 g/dL (3.5-5.0) 03/30/19 19:05 Globulin 3.4 gm/dL (2.2-3.9) 03/30/19 19:05 Albumin/Globulin Ratio 1.2 (1.0-2.1) 03/30/19 19:05 - ECG O2 Sat by Pulse Oximetry: 100 - Progress ED Course And Treament: Case endorsed to job specification writer from Jasbir GERMAN pending labs On re-eval, patient resting comfortably; states no symptoms currently. Labs show no acute abnormalities. Vitals stable Patient educated on findings, discharged with instructions to follow up PMD/field service analyst Return precautions given Disposition - Clinical Impression Clinical Impression: Chest pain, Palpitations - POA Present On Arrival: None - Disposition Disposition: Routine/Home Disposition Time: 20:51 Condition: IMPROVED Instructions: Chest Pain, Palpitations
[2019-03-30 21:10] VITALS: BP 129/72; PULSE 66; RESP 18; O2SAT 97
--- NOTE | 2019-03-31 11:52 | CARD ---
APPROVED REPORT Date of service: 03/30/2019 EKG Measurement Heart [id number] <Conclusion> Normal sinus rhythm Normal ECG
== END 2019-03-30 21:08 | disposition home or self-care (01) ==
LOC: H.ER 17:12
DX: R07.9 Chest pain, unspecified (principal); I10 Essential (primary) hypertension; Z82.49 Family history of ischemic heart disease and other diseases of the circulatory system; E03.9 Hypothyroidism, unspecified